=== PATIENT | male | born 1995 | race Caucasian/White ===

== ENCOUNTER 2018-06-20 18:00 | Outpatient (RCR) | payer OTHER, SELFPAY ==
--- NOTE | 2018-06-12 15:34 | HP.PTEVAL ---
Patient's Visit Information PAULINE HEIN is a 23 year old M referred to Physical Therapy by Ra Washington MD with a diagnosis of BPPV. Date of Evaluation: 06/12/18 Physical Therapist: Vincenzo Colon, DPT, OCS, CSCS - Visit Plan Frequency: 1-2x /Week Duration: 2-4 Weeks Plan: 1-2x/week for 2-4 weeks as needed. positional treatments and oculomotor check as needed. - Subjective Findings: had sleep study done due to feeling wierd. Saw Padmini for f/u on sleep study. Did test where he bent forward and got up real quick and got some dizzyness. Tieing shoes and standign up makes him dizzy for a second. Sometimes walking he feels off. Been going on for two months out o nowhere. Diagnosed BPPV. sent for PT. Not sleeping well due to anxiety. Works as a [employer] in [employer], no problems at work. Work is fine. Hobbies are video games and TV whcih don't bother him. exercises regularly on elliptical. feels wierd afterward. Basic ADLs are OK. - Objective Walks well and romberg eo and ec 30 seconds. Good balance and posture. c/s aROM WFL and painfree. - l hallpike. + R hallpike for 6 seconds dizzyness but no obvious nystagmus, treated with Navin then no dizzyness with test. Taugth BD ex for HEP. - Balance Scores Functional Gait Assessment Score: 30 % Disability: 0 CATSIB Score (Max score 120 seconds): 120 - Goals Goal 1:: abolish vertigenous feeling 100% Goal Time Frame: 2-4 Weeks - Rehabilitation Potential Physical Therapy Diagnosis: Possible R BPPV Rehabilitation Potential: Fair - Anticipated Interventions Patient/Client Instruction: Educate patient on: Condition, Plan of Care For the Purpose of:: To increase tolerance to activity/condition/position Comment: postional ex and treatments For the Purpose of:: To increase tolerance to activity/condition/position Thank you for the opportunity to evaluate your patient. For Medicare and Medicare HMO plans, please review the plan of care and approve it. It will need to be FAXED BACK to us at [phone] for Medicare purposes. For Medicare only, by signing this I certify the plan of care. Please let me know if there are questions or concerns regarding this plan of care. Physician Signature: Date:
--- NOTE | 2018-06-20 18:11 | HP.PTDCSUM ---
HP - PT D/C Summary It has been my pleasure to treat PAULINE HEIN under orders from Ra Washington MD, for the diagnosis of BPPV for a total of 2 visit(s). Discharge Date: 06/20/18 Please see the following information for a summary of their discharge status. - Subjective Subjective: Not much dizzyness since last session. 95% better. Balance is good. Activiites normal for last week. Played basketball without issue. To doctor today and no more scheduled , doing well. - Overall Improvement % Improvement: 95 - Objective Objective/Function: - B hallpike adn - roll test. Walking is normal as are activities subjectively. RESOLVED. - Goals Goal 1:: abolish vertigenous feeling 100% Goal Progress: Goal Met - Plan Plan: D/C - D/C Information Discharge Comments: BPPV resolved. Pt dpoing well adn will let doctor know if dizzyness returns. If there are questions or concerns regarding this patient's physical therapy, please feel free to call me at [phone]. Thank you for the referral of this patient. Sincerely, Vincenzo Colon, DPT, OCS, CSCS
== END 2018-06-20 19:00 | disposition home or self-care (01) ==
LOC: PT 18:00
PROVIDERS: Family Provider Nurse Practitioner Family; PCP Nurse Practitioner Family; Visit Provider Psychiatry & Neurology Neurology
DX: H81.11 Benign paroxysmal vertigo, right ear (principal)
CPT/HCPCS: 97162; 97530